=== PATIENT | female | born 1965 | race Caucasian/White ===

== ENCOUNTER 2020-10-27 15:46 | Emergency (ER) | payer OTHER, SELFPAY ==
--- NOTE | 2020-10-27 15:56 | ED.SKABFB ---
HPI - Skin/Abscess/Foreign Bdy General Chief complaint: Skin/Abscess/Foreign Body Stated complaint: nail hit her in the head Time Seen by Provider: 10/27/20 16:05 Source: patient and RN notes reviewed Mode of arrival: ambulatory Limitations: no limitations History of Present Illness HPI narrative: 54-year-old female presents with concern for a puncture wound. Reports she was in her attic yesterday when she hit her head on a nail that was sticking out of the wood. She denies any loss of consciousness, headache. Reports a small puncture wound that has since scabbed over. She reports she is concerned that she needs a tetanus vaccination. She denies any redness, edema surrounding the wound, denies drainage. She denies any subsequent headache, nausea, vomiting. MD complaint: other (Puncture wound) Related Data Home Medications Medication Instructions Recorded Confirmed No Home Medications 10/27/20 10/27/20 Allergies Allergy/AdvReac Type Severity Reaction Status Date / Time IVORY SOAP Allergy Mild Uncoded 04/09/09 15:25 Review of Systems Review of Systems: Narrative: CONSTITUTIONAL: Denies malaise, chills, sweats, or fever. EYES: Denies visual changes CARDIOVASCULAR: Denies chest pain, palpitations, or edema. RESPIRATORY: Denies cough or dyspnea. SKIN: Reports puncture wound to scalp with a scab NEUROLOGIC: Denies numbness, weakness, headache, loss of consciousness All systems reviewed & are unremarkable except as noted in HPI and below PMFSH Comments At time of signature, agree with nursing past medical, surgical, social and family history. There is no relevant family history pertinent to the presenting complaint Exam Narrative: Exam Narrative: GENERAL: Well-appearing, well-nourished, and in no acute distress. HEAD: Normocephalic, atraumatic. EYES: PERRLA, conjunctivae clear, and EOMI. ENT: Mucous membranes moist. NECK: Supple. No lymphadenopathy CHEST: Clear to auscultation. No respiratory distress. HEART: Regular rate and rhythm. SKIN: Warm, dry. Scabbed puncture wound noted to the left parietal area, no surrounding induration, edema, erythema, no drainage NEURO: Alert and oriented x3. No focal deficits. Cranial nerves II through XII grossly intact PSYCH: Normal mood and affect Course Course Emergency Course: Patient is aware of diagnosis, understands and agrees to treatment plan. Anticipatory guidance given. Patient agrees to follow-up as directed and is aware of reasons to seek care at the emergency department. Portions of this record may have been created with voice recognition software Vital Signs Vital signs: Reviewed. Patient has been instructed to follow up with her primary care provider within the next week regarding her elevated blood pressure today. MDM - Skin/Abscess/Foreign Bdy MDM Narrative Medical decision making narrative: Exam findings and imaging show no acute concerns or changes; patient is non-toxic appearing and is in no distress. Patient is appropriate for outpatient treatment and follow-up. Critical Care Time Critical Care Time Critical Care Time: No Discharge Plan Discharge Clinical Impression: Puncture wound of skin from metal nail Patient Disposition: Home, Self-Care Condition: Stable Instructions: Puncture Wound (ED) Additional Instructions: 1) Please follow-up with your primary care doctor if you have any new symptoms or other concerns. 2) If you have any urgent concerns please go to the ER. 3) Please keep wound clean and dry, wash daily with soap and water. You may apply antibiotic ointment twice daily. 4) Please read and follow information included in discharge instructions. Your blood pressure was elevated above 120/80 today at [facility]. This puts you above the threshold for follow up. Please schedule a follow up visit with your personal physician as soon as possible, for further evaluation and treatment. Even blood pressure exceeding 120/80 may indicate
[2020-10-27 16:04] VITALS: BP 166/86; PULSE 95; RESP 16; TEMP 37.2; O2SAT 99
[2020-10-27] MEDS: TETANUS,DIPHTHERIA,AC PERTUSSIS ADULT (0.5 ML) BOOSTRIX IM (16:13)
== END 2020-10-27 16:34 | disposition home or self-care (01) ==
PROVIDERS: Emergency Provider Nurse Practitioner
DX: S01.03XA Puncture wound without foreign body of scalp, initial encounter (principal); W45.0XXA Nail entering through skin, initial encounter; Z23 Encounter for immunization
CPT/HCPCS: 90471; 90715; 99212; G0463

== ENCOUNTER 2021-02-24 10:18 | Emergency (ER) | payer OTHER, SELFPAY ==
[2021-02-24 10:27] VITALS: BP 160/100; PULSE 101; RESP 16; TEMP 36.6; O2SAT 99
--- NOTE | 2021-02-24 10:44 | ED.SKABFB ---
HPI - Skin/Abscess/Foreign Bdy General Chief complaint: Skin/Abscess/Foreign Body Stated complaint: rash Time Seen by Provider: 02/24/21 10:34 Source: patient and RN notes reviewed Mode of arrival: ambulatory Limitations: no limitations History of Present Illness HPI narrative: Patient presents today complaining of her 2-day history of a rash to the bilateral arms, neck, face that is pruritic. She has not been trying anything at home and states the rash has been worsening. 3 weeks ago she burned her left forearm on a hot Bakers rack. States the burn has been improving with some home remedies, but she wanted to have it looked at as well. MD complaint: rash Related Data Allergies Allergy/AdvReac Type Severity Reaction Status Date / Time IVORY SOAP Allergy Mild Itching Uncoded 02/24/21 10:35 Review of Systems Review of Systems: Narrative: CONSTITUTIONAL: Denies body aches, fever, chills, or sweats. EYES: Denies visual changes, redness, or discharge. ENT: Denies rhinorrhea, congestion, sore throat, or otalgia. CARDIOVASCULAR: Denies chest pain, palpitations, or edema. RESPIRATORY: Denies cough or dyspnea. GASTROINTESTINAL: Denies abdominal pain, nausea, vomiting, or diarrhea. GENITOURINARY: Denies dysuria or hematuria. SKIN: + Rash, burn MUSCULOSKELETAL: Denies back pain, joint pain, or myalgia. NEUROLOGIC: Denies headache, numbness, tingling, or weakness. PSYCH: Denies depression or anxiety. PMFSH Comments At time of signature, I have reviewed and agree with nursing past medical, surgical, social and family history unless otherwise noted. Please see nursing chart for further information. There is no relevant family history pertinent to the presenting complaint Exam Narrative: Exam Narrative: GENERAL: Well-appearing, well-nourished, and in no acute distress. HEAD: Normocephalic, atraumatic. EYES: EOMI. No redness or drainage. Conjunctivae normal. ENT: Mucous membranes pink and moist. NECK: Normal AROM. CHEST: No respiratory distress. EXTREMITIES: Normal range of motion. No edema. SKIN: Warm, dry. Capillary refill normal. Normal skin turgor. You have a 3 cm area of scabbed healing rash to the left forearm surrounded with a papular rash and mild honey crusting. No induration noted. Patient has urticarial rash to bilateral arms, face, neck, right hand. NEURO: No focal deficits. Alert and oriented x3. Gait steady. PSYCH: Normal affect. No signs of depression or anxiety. Course Vital Signs Vital signs: Vital Signs Temperature 97.8 F 02/24/21 10:27 Pulse Rate 101 H 02/24/21 10:27 Respiratory Rate 16 02/24/21 10:27 Blood Pressure 160/100 H 02/24/21 10:27 Pulse Oximetry 99 02/24/21 10:27 Temperature 97.8 F 02/24/21 10:27 Pulse Rate 101 H 02/24/21 10:27 Respiratory Rate 16 02/24/21 10:27 Blood Pressure 160/100 H 02/24/21 10:27 Pulse Oximetry 99 02/24/21 10:27 Reviewed. Pt has been instructed to follow up with her PCP regarding her elevated blood pressure today. MDM - Skin/Abscess/Foreign Bdy Differential Diagnosis Differential diagnosis: Likely abscess of skin or subcutaneous tissue, viral exanthem, urticaria, cellulitis, eczema, insect bites, impetigo and contact dermatitis Critical Care Time Critical Care Time Critical Care Time: No Discharge Plan Discharge Clinical Impression: Urticaria, Impetigo Patient Disposition: Home, Self-Care Condition: Stable Instructions: Impetigo (DC), Urticaria (ED) Additional Instructions: Please take the prednisone as prescribed for your hives. Please use the mupirocin ointment on your left forearm for your impetigo infection. Please follow-up with your PCP in 3 to 4 days if symptoms are not improving, or sooner if symptoms worsen. Take Benadryl for your itching. Your blood pressure was elevated above 120/80 today at Urgent Care. This puts you above the threshold for follow up. Please schedule a followup visit with your pers
== END 2021-02-24 10:51 | disposition home or self-care (01) ==
PROVIDERS: Emergency Provider Nurse Practitioner
DX: L50.9 Urticaria, unspecified (principal); L01.00 Impetigo, unspecified
CPT/HCPCS: 99213; G0463